=== PATIENT | female | born 1985 | race Caucasian/White ===

== ENCOUNTER 2018-02-27 20:17 | Inpatient (IN) ==
--- NOTE | 2018-02-27 21:22 | XR ---
EXAM DATE: 02/27/2018 8:54 PM EST AGE/SEX: 32 years / Female INDICATIONS: Fever CLINICAL DATA: This is the patient's initial encounter. Patient reports that signs and symptoms have been present for 3 days and indicates a pain score of 0/10. MEDICAL/SURGICAL HISTORY: None. None. COMPARISON: No prior exams available for comparison. FINDINGS: 2 AP views of the chest. The lungs are clear. Cardiomediastinal silhouette within normal limits. No evidence of pleural effusion or pneumothorax. Rounded lucency in the left upper quadrant of the abdomen likely representing distended stomach. CONCLUSION: 1. No acute cardiopulmonary disease identified. 2. Likely distended stomach in the left upper quadrant of the abdomen. Electronically signed by: Darron Boyd MD Board Certified Radiologist 02/27/2018 9:21 PM EST
[2018-02-27 23:39] LABS: Baso % (Auto) 0.1 % (0.0-2.0); Eos # (Auto) 0.1 th/mm3 (0.0-0.4); Eos % (Auto) 0.8 % (0.0-4.0); Hematocrit 36.7 % (35.0-46.0); Hemoglobin 13.1 gm/dL (11.6-15.3); Lymph # (Auto) 1.5 th/mm3 (1.0-4.8); Lymph % (Auto) 8.8 % (9.0-44.0); Mean Corpuscular HGB Conc 35.7 % (32.0-36.0); Mean Corpuscular Hemoglobin 29.5 pg (27.0-34.0); Mean Corpuscular Volume 82.7 fL (80.0-100.0); Mean Platelet Volume 7.1 fL (7.0-11.0); Mono # (Auto) 1.6 th/mm3 (0.0-0.9); Mono % (Auto) 9.2 % (0.0-8.0); Neut # (Auto) 13.7 th/mm3 (1.8-7.7); Neut % (Auto) 81.1 % (16.0-70.0); Platelet Count 306 th/mm3 (150-450); Red Blood Count 4.44 mil/mm3 (4.00-5.30); Red Cell Distribution Width 12.8 % (11.6-17.2); White Blood Count 16.8 th/mm3 (4.0-11.0)
--- NOTE | 2018-02-27 23:42 | ED ---
HPI General Chief complaint: Skin/Abscess/Foreign Body Stated complaint: Abcess Time Seen by Provider: 02/27/18 20:24 History of Present Illness HPI narrative: Patient is a 32-year-old female presents emergency department for evaluation of abscesses "all of her body". Patient states have been there for about 2 weeks. Most pronounced is the dorsum of her left foot, the left side of her neck. All these are sources for her prior IV drug injections. Patient denies any chills any chest pain or any fevers. Patient states that she googled her symptoms and is concerned that bacteria might be in her blood so she panicked and called 911. States symptoms are severe, location context and duration as above. Related Data Home Medications Medication Instructions Recorded Confirmed No Known Home Medications 02/28/18 02/28/18 Allergies Allergy/AdvReac Type Severity Reaction Status Date / Time sulfamethoxazole Allergy Severe VOMITING Verified 02/28/18 04:58 trimethoprim Allergy Severe VOMITING Verified 02/28/18 04:58 Review of Systems ROS: all other systems reviewed are negative [facility] Medical History Medical History delivery delivered (Acute) Patient denies medical problems (Acute) Social History Social History Substance History: Active Abuse Second Hand Smoke Exposure: No Smoking Status: Current every day smoker Tobacco Type: Cigarettes How Often Do You Have a Drink Containing Alcohol: Never Recent Travel in [facility] within the Last 8 Weeks: No Recent Out of Country Travel within the Last 8 Weeks: No Substance Abuse Detail Heroin: Substance Use Status: Active Route Used Substance Abuse: Intravenously Last Used: TODAY Methamphetamine: Substance Use Status: Active Last Used: 3 DAYS AGO Immunization History Tetanus Immunization: Unsure Exam Narrative Exam Narrative: GENERAL: Well-developed well-nourished in no obvious distress. SKIN: Focused skin assessment warm/dry. Significant abscess and cellulitis on the dorsum of foot. Is already draining and the patient states to try to drain at home. Small area of induration and erythema on the left neck probably silver dollar sized. Is also some small abscesses on the volar forearms. No splinter hemorrhages. HEAD: Atraumatic. Normocephalic. EYES: Pupils equal and round. No scleral icterus. No injection or drainage. ENT: No nasal bleeding or discharge. Mucous membranes pink and moist. NECK: Trachea midline. No JVD. CARDIOVASCULAR: Regular rhythm with tachycardia. No murmur appreciated. No murmurs gallops or rubs. RESPIRATORY: No accessory muscle use. Clear to auscultation. Breath sounds equal bilaterally. GASTROINTESTINAL: Abdomen soft, non-tender, nondistended. Hepatic and splenic margins not palpable. MUSCULOSKELETAL: No obvious deformities. No clubbing. No cyanosis. No edema. NEUROLOGICAL: Awake and alert. No obvious cranial nerve deficits. Motor grossly within normal limits. Normal speech. PSYCHIATRIC: Appropriate mood and affect; insight and judgment normal. Procedures Abscess I/D Abscess 1: Site: foot Side (if applicable): left Sedation/analgesia: midazolam Anesthetic used: lidocaine 1% and ethyl chloride topical spray Technique: incised with #11 blade Amount of fluid expressed (mL): 100 Irrigation: No Packing used?: none Course Initial Documented Vital Signs Temperature 98.5 F 02/27/18 20:24 Pulse Rate 98 H 02/27/18 20:24 Respiratory Rate 16 02/27/18 20:24 Blood Pressure 116/75 02/27/18 20:24 Pulse Oximetry 96 02/27/18 20:24 Last Documented Vital Signs Temperature 98.3 F 03/02/18 20:00 Pulse Rate 118 H 03/02/18 20:00 Respiratory Rate 18 03/02/18 20:00 Blood Pressure 123/64 03/02/18 20:00 Pulse Oximetry 97 03/02/18 20:00 Sign Out Sign Out Data: Patient Sign Out occurred on 02/28/18 at 01:05. Patient's care was discussed, and care was transferred from Blair Nettles MD to [place]. Sign Out Comment: Follow up CT soft tissue neck. If surgical abscess call surgeon. If not recommend admission to medicine for rule out osteomyelitis, bacteremia, endocarditis. Last updated by Blair Nettles MD at 02/28/18 00:59 Post-Handoff Eval: 32-year-old female came to the emergency room with history of multiple abscesses. Patient is an IV drug abuser. She was seen by the previous physician. Please refer to his history and physical for further details. Patient was started on IV antibiotic. 1 of the abscesses was I&D by the physician. Signout was to follow-up on the CAT scan of her soft tissue neck. I have admitted the patient to the hospitalist. The CT scan shows an infected branchial cyst with minimal surrounding soft tissue inflammation. Medical Decision Making MDM Narrative Medical decision making narrative: Patient room to the emerge department, multiple abscesses seen on her person, foot was drained and a culture was sent. Patient's white count is elevated, 17,000, she is tachycardic at 100. This is technically sepsis criteria though I think the heart rate is somewhat elevated by the patient's anxiety. She was given vancomycin and Zosyn, liter normal saline, lactic acid negative, blood culture sent. I think the patient needs to be admitted to exclude osteomyelitis, bacteremia, possible endocarditis. Patient still waiting for CT is soft tissue of the neck at the end of my shift and will be discussed with Dr. Rebolledo to follow-up CAT scan and then disposition the patient. Medical Screen Exam Complete: Yes Emergency Medical Condition: Yes Lab Data Result diagrams: 03/01/18 08:31 03/02/18 20:42 POC Results POC Urine Results Negative Lab Results 02/27/18 02/27/18 02/27/18 Range/Units 23:20 23:20 23:20 WBC 16.8 H (4.0-11.0) th/mm3 RBC 4.44 (4.00-5.30) mil/mm3 Hgb 13.1 (11.6-15.3) gm/dL Hct 36.7 (35.0-46.0) % MCV 82.7 (80.0-100.0) fL MCH 29.5 (27.0-34.0) pg MCHC 35.7 (32.0-36.0) % RDW 12.8 (11.6-17.2) % Plt Count 306 (150-450) th/mm3 MPV 7.1 (7.0-11.0) fL Neut % (Auto) 81.1 H (16.0-70.0) % Lymph % (Auto) 8.8 L (9.0-44.0) % Wheeler % (Auto) 9.2 H (0.0-8.0) % Eos % (Auto) 0.8 (0.0-4.0) % Baso % (Auto) 0.1 (0.0-2.0) % Neut # (Auto) 13.7 H (1.8-7.7) th/mm3 Lymph # (Auto) 1.5 (1.0-4.8) th/mm3 Wheeler # (Auto) 1.6 H (0.0-0.9) th/mm3 Eos # (Auto) 0.1 (0.0-0.4) th/mm3 Baso # (Auto) 0.0 (0.0-0.2) th/mm3 WBC Differential . Differential Comment Auto diff final Hematology Comments Sodium 140 (136-145) meq/L Potassium 3.3 L (3.5-5.1) meq/L Chloride 104 (98-107) meq/L Carbon Dioxide 28.8 (21.0-32.0) meq/L Anion Gap 7 (5-15) meq/L BUN 23 H (7-18) mg/dL Creatinine 0.66 (0.50-1.00) mg/dL Estimated GFR Greater than 89 (>89) mL/min Random Glucose 96 (74-106) mg/dL Lactic Acid 0.6 (0.4-2.0) mmol/L Calcium 8.6 (8.5-10.1) mg/dL Magnesium 2.4 (1.5-2.5) mg/dL Total Bilirubin 0.4 (0.2-1.0) mg/dL AST 32 (15-37) U/L ALT 41 (10-53) U/L Alkaline Phosphatase 85 (45-117) U/L Total Protein 8.5 H (6.4-8.2) g/dL Albumin 3.6 (3.4-5.0) g/dL Vancomycin Trough (5.0-10.0) mcg/mL 03/01/18 03/01/18 03/01/18 Range/Units 08:31 08:31 15:46 WBC 11.6 H (4.0-11.0) th/mm3 RBC 4.72 (4.00-5.30) mil/mm3 Hgb 14.3 (11.6-15.3) gm/dL Hct 40.0 (35.0-46.0) % MCV 84.8 (80.0-100.0) fL MCH 30.2 (27.0-34.0) pg MCHC 35.7 (32.0-36.0) % RDW 12.9 (11.6-17.2) % Plt Count 219 (150-450) th/mm3 MPV 7.4 (7.0-11.0) fL Neut % (Auto) 76.5 H (16.0-70.0) % Lymph % (Auto) 12.9 (9.0-44.0) % Wheeler % (Auto) 8.7 H (0.0-8.0) % Eos % (Auto) 1.2 (0.0-4.0) % Baso % (Auto) 0.7 (0.0-2.0) % Neut # (Auto) 8.9 H (1.8-7.7) th/mm3 Lymph # (Auto) 1.5 (1.0-4.8) th/mm3 Wheeler # (Auto) 1.0 H (0.0-0.9) th/mm3 Eos # (Auto) 0.1 (0.0-0.4) th/mm3 Baso # (Auto) 0.1 (0.0-0.2) th/mm3 WBC Differential . Differential Comment Auto diff final Hematology Comments Sodium 134 L (136-145) meq/L Potassium 3.9 (3.5-5.1) meq/L Chloride 107 (98-107) meq/L Carbon Dioxide 19.5 L D (21.0-32.0) meq/L Anion Gap 8 (5-15) meq/L BUN 5 L (7-18) mg/dL Creatinine 0.58 (0.50-1.00) mg/dL Estimated GFR Greater than 89 (>89) mL/min Random Glucose 82 (74-106) mg/dL Lactic Acid (0.4-2.0) mmol/L Calcium 8.4 L (8.5-10.1) mg/dL Magnesium (1.5-2.5) mg/dL Total Bilirubin 0.6 (0.2-1.0) mg/dL AST 25 (15-37) U/L ALT 23 (10-53) U/L Alkaline Phosphatase 89 (45-117) U/L Total Protein 8.0 (6.4-8.2) g/dL Albumin 2.8 L D (3.4-5.0) g/dL Vancomycin Trough 4.1 L (5.0-10.0) mcg/mL 03/02/18 Range/Units 20:42 WBC (4.0-11.0) th/mm3 RBC (4.00-5.30) mil/mm3 Hgb (11.6-15.3) gm/dL Hct (35.0-46.0) % MCV (80.0-100.0) fL MCH (27.0-34.0) pg MCHC (32.0-36.0) % RDW (11.6-17.2) % Plt Count (150-450) th/mm3 MPV (7.0-11.0) fL Neut % (Auto) (16.0-70.0) % Lymph % (Auto) (9.0-44.0) % Wheeler % (Auto) (0.0-8.0) % Eos % (Auto) (0.0-4.0) % Baso % (Auto) (0.0-2.0) % Neut # (Auto) (1.8-7.7) th/mm3 Lymph # (Auto) (1.0-4.8) th/mm3 Wheeler # (Auto) (0.0-0.9) th/mm3 Eos # (Auto) (0.0-0.4) th/mm3 Baso # (Auto) (0.0-0.2) th/mm3 WBC Differential Differential Comment Hematology Comments Sodium (136-145) meq/L Potassium (3.5-5.1) meq/L Chloride (98-107) meq/L Carbon Dioxide (21.0-32.0) meq/L Anion Gap (5-15) meq/L BUN (7-18) mg/dL Creatinine 0.81 (0.50-1.00) mg/dL Estimated GFR 81 L (>89) mL/min Random Glucose (74-106) mg/dL Lactic Acid (0.4-2.0) mmol/L Calcium (8.5-10.1) mg/dL Magnesium (1.5-2.5) mg/dL Total Bilirubin (0.2-1.0) mg/dL AST (15-37) U/L ALT (10-53) U/L Alkaline Phosphatase (45-117) U/L Total Protein (6.4-8.2) g/dL Albumin (3.4-5.0) g/dL Vancomycin Trough (5.0-10.0) mcg/mL Imaging Data Radiologist's impression: Chest X-Ray 02/27/18 20:33 CONCLUSION: 1. No acute cardiopulmonary disease identified. 2. Likely distended stomach in the left upper quadrant of the abdomen. Foot X-Ray 02/28/18 00:00 CONCLUSION: No acute bony findings Soft Tissue Neck CT 02/28/18 00:00 CONCLUSION: 1. 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 Local regional adenopathy noted. A follow-up ultrasound is suggested following resolution of symptoms. Neck Ultrasound 03/01/18 00:00 CONCLUSION: 1. Probable 3.9 cm superficial subcutaneous abscess at the base of the left neck. 2. Patient did not allow for performance of ultrasound-guided needle aspiration without sedation which is medically not necessary. This is a very superficial and obvious lesion for incision and drainage which would likely allow for more definitive evacuation of the collection. Will happily reconsider ultrasound-guided aspiration if patient is agreeable with preprocedural anxiolytics. Foot MRI 03/02/18 00:00 CONCLUSION: 1. Mild subcutaneous edema and no signs of osteomyelitis. Lower Extremity MRI 03/02/18 00:00 CONCLUSION: 1. Unremarkable study. Needle Aspiration US 03/02/18 00:00 CONCLUSION: 1. Uncomplicated ultrasound-guided aspiration of a very complex subcutaneous inferior left neck abscess. Only approximately 1 cc of very thick purulent fluid could be removed. Discharge Plan Discharge Disposition Patient Disposition: ED Admit(ED Internal Use Only) Discharge Order Discharge Orders: AMA Discharge (Routine); Ordered 03/02/18 Ordered By: Haily Manning ED Use Only Admit Order (Routine); Ordered 02/28/18 Ordered By: Stanton Rebolledo Physicians Team ED Provider: Stanton Rebolledo Primary Care Provider: Primary Care Yuliana,Jessi Attending Provider: Damien Ventura Other Providers: Acacia Treviño ; Antonio Pollard ; Tye Longoria Status ED Status: Left Department Discharge Information Discharge Date/Time: 02/28/18 08:32
[2018-02-27] MEDS ORDERED: Vancomycin Inj 1,000 MG in Sodium Chlor 0.9% Inj 250 ML IV.SIG ONE (23:43)
[2018-02-27] MEDS ORDERED: Sod Chloride 0.9% Inj 1,000 ML IV.SIG SCH (23:45)
[2018-02-27] MEDS ORDERED: Piperacil/Tazo 4.5 GM Premix 4.5 GM/100 ML BAG IV.SIG SCH (23:45)
[2018-02-27 23:51] LABS: Alanine Aminotransferase 41 U/L (10-53); Albumin 3.6 g/dL (3.4-5.0); Anion Gap 7 meq/L (5-15); Aspartate Aminotransferase 32 U/L (15-37); Blood Urea Nitrogen 23 mg/dL (7-18); Calcium 8.6 mg/dL (8.5-10.1); Carbon Dioxide 28.8 meq/L (21.0-32.0); Chloride 104 meq/L (98-107); Glomerular Filtration Rate Greater Than 89 mL/min (>89); Glucose,Random 96 mg/dL (74-106); Magnesium 2.4 mg/dL (1.5-2.5); Potassium 3.3 meq/L (3.5-5.1); Sodium 140 meq/L (136-145)
[2018-02-27 23:54] LABS: Alkaline Phosphatase 85 U/L (45-117); Total Protein 8.5 g/dL (6.4-8.2)
[2018-02-28] MEDS ORDERED: Midazolam Inj 5 MG/ML 1 ML Vial IV.PUSH ONE (00:31)
--- NOTE | 2018-02-28 01:37 | CT ---
EXAM DATE: 02/28/2018 1:26 AM EST AGE/SEX: 32 years / Female INDICATIONS: Pain with swelling lower left lateral neck. CLINICAL DATA: This is the patient's initial encounter. Patient reports that signs and symptoms have been present for 1 day and indicates a pain score of 5/10. MEDICAL/SURGICAL HISTORY: . IV Drug User section. RADIATION DOSE: 12.03 CTDI (mGy) COMPARISON: No prior exams available for comparison. TECHNIQUE: Helical acquisition was performed using a multirow detector CT scanner during the adminis tration of 70 ml Omnipaque 350 (iohexol) nonionic water-soluble contrast as a single exam dose. Usi ng automated exposure control and adjustment of the mA and/or kV according to patient size, radiation dose was kept as low as reasonably achievable to obtain optimal diagnostic quality images. DICOM fo rmat image data is available electronically for review and comparison. FINDINGS: Nasopharynx: The nasopharyngeal airway has a normal configuration. No mucosal thickening or mass is seen. Oropharynx: The intrinsic muscles of the tongue are symmetric. The tonsillar pillars are intact. T he prevertebral soft tissues are not thickened. Larynx: The supraglottic, glottic, and infraglottic structures are intact. Parapharyngeal: The parapharyngeal space is intact. Salivary Glands: The parotid and submandibular glands are intact. Lymph Nodes: Adjacent to the posterior margin of the sternocleidomastoid muscle on the left is a cys tic lesion that measures 2.8 x 1.9 x 1.7 cm. It is smoothly marginated and well circumscribed. Mild i nflammatory changes seen within the adjacent fat.. No air associated with this. Mildly enlarged lymph nodes are seen directly superior to the previously described cystic lesion. These measure approximat e 1 cm in greatest dimension.. Thyroid: Homogeneous enhancement without evidence of nodule. Bones: Unremarkable. CONCLUSION: 1. 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 Local regional adenopathy noted. A f ollow-up ultrasound is suggested following resolution of symptoms. Electronically signed by: Abdullahi Ferrer MD Board Certified Radiologist 02/28/2018 1:36 AM EST
[2018-02-28] MEDS ORDERED: Acetaminophen 325 MG Tablet PO PRN (02:30)
[2018-02-28] MEDS ORDERED: Bisacodyl 10 MG Supp RECTAL PRN (02:30)
[2018-02-28] MEDS ORDERED: Vancomycin Consult Pharmacy OTHER PRN (02:30)
[2018-02-28] MEDS ORDERED: Naloxone Inj 0.4 MG/ML Vial IV.PUSH PRN (02:30)
--- NOTE | 2018-02-28 04:33 | P.HPIM ---
History of Present Illness Primary Care Physician: No Primary Care Physician History of Present Illness: This is a 32-year-old female with a PMH of IVDU who presented to the ER with complaints of multiple abscesses for approx 2wks. Notes abscesses to foot, neck and forearms at sites of previous injections. No reported fever or chills. Attempted to drain abscesses at home. On arrival, BP 116/75, HR 98, O2 sat 96% on RA, Afebrile. WBC 16.8. Chemistry essentially unremarkable. Lactic Acid normal. CXR no acute cardiopulmonary findings, possible distended stomach. CT Neck 2.8 cm cystic structure left supraclavicular region with surrounding inflammatory changes possibly infected brachial cleft cyst. S/p I&D of left foot abscess in ER. Vanc/Zosyn given. Diagnosis (1) Abscess: (2) IVDU (intravenous drug user): (3) SIRS (systemic inflammatory response syndrome): Inpatient Certification Inpatient Certification: I certify that the inpatient services were ordered in accordance with Medicare regulations governing the order. This includes certification that hospital inpatient services are reasonable and necessary and in the case of services not specified as inpatient-only under 42 CFR 419.22(n), that they are appropriately provided as inpatient services in accordance to with the 2-midnight benchmark under 43 CFR 412.3(e) Estimated Total Length of Stay (Days): 2 Plans for Post Hospital Care: Not yet determined Review of Systems PAST FAMILY HISTORY: Reviewed. No h/o DM or CAD Review of Systems: all other systems reviewed are negative PMFSH Medical History Medical History delivery delivered (Acute) Patient denies medical problems (Acute) Social History Social History Substance History: Active Abuse Smoking Status: Current every day smoker Tobacco Type: Cigarettes How Often Do You Have a Drink Containing Alcohol: Never Recent Travel in [facility] within the Last 8 Weeks: No Recent Out of Country Travel within the Last 8 Weeks: No Substance Abuse Detail Heroin: Substance Use Status: Active Route Used Substance Abuse: Intravenously Last Used: TODAY Methamphetamine: Substance Use Status: Active Last Used: 3 DAYS AGO Immunization History Tetanus Immunization: Unsure Medications and Allergies Allergies Allergy/AdvReac Type Severity Reaction Status Date / Time sulfamethoxazole Allergy Severe VOMITING Unverified 10/06/16 15:48 trimethoprim Allergy Severe VOMITING Unverified 10/06/16 15:48 Home Medications Medication Instructions Recorded Confirmed Type No Known Home Medications 02/28/18 02/28/18 History Active Medications: Active Medications Acetaminophen (Tylenol) 650 mg PO Q4H PRN PRN Reason: Temp > 100.4 Al Hydroxide/Mg Hydroxide (Milk Of Magnesia Liq) 30 ml PO Q12H PRN PRN Reason: Mild Constipation Bisacodyl (Dulcolax Supp) 10 mg RECTAL DAILY PRN PRN Reason: SEVERE CONSITIPATION Piperacillin/Tazobactam/Dextrose (Zosyn 4.5 Gm Premix) 4.5 gm in 100 mls @ 200 mls/hr IV.SIG ONCE HANNAH Last Infusion: 02/28/18 01:24 Dose: Infused Sodium Chloride (Ns Inj) 1,000 mls @ 100 mls/hr IV.CONT .Q10H HANNAH Piperacillin/Tazobactam/Dextrose (Zosyn 4.5 Gm Premix) 4.5 gm in 100 mls @ 200 mls/hr IV.SIG Q6H HANNAH Lactulose (Lactulose Liq) 30 ml PO DAILY PRN PRN Reason: SEVERE CONSITIPATION Naloxone HCl (Narcan Inj) 0.4 mg IV.PUSH UNSCH PRN PRN Reason: SEE LABEL COMMENTS Ondansetron HCl (Zofran Inj) 4 mg IV.PUSH Q6H PRN PRN Reason: NAUSEA OR VOMITING Oxycodone HCl (Roxicodone) 10 mg PO Q4H PRN PRN Reason: PAIN SCALE 6 TO 10 Oxycodone HCl (Roxicodone) 5 mg PO Q4H PRN PRN Reason: PAIN SCALE 3 TO 5 Pharmacy Profile Note (Vancomycin Consult Pharmacy) 1 each OTHER UNSCH PRN PRN Reason: Pharmacy to dose Senna/Docusate Sodium (Tricia-Colace) 1 tab PO BID HANNA[facility] Sennosides (Senokot) 17.2 mg PO Q12H PRN PRN Reason: Moderate Constipation Sodium Chloride (Ns Flush) 2 ml IV.FLUSH BID HANNA[facility] Sodium Chloride (Ns Flush) 2 ml IV.FLUSH PRN PRN PRN Reason: FLUSH AFTER USING IV ACCESS Physical Exam Vital signs: Last Vital Signs Temp 98.5 F 02/27/18 20:24 Pulse 100 H 02/28/18 00:28 Resp 19 02/28/18 00:28 BP 134/85 02/28/18 00:28 Pulse Ox 100 02/28/18 00:28 Intake & Output 02/25/18 02/26/18 02/27/18 02/28/18 06:59 06:59 06:59 06:59 Intake Total 1350 / 1350 Balance 1350 / 1350 Weight 54.431 kg Narrative: PE: GENERAL: Young white female in no acute distress. SKIN: Focused skin assessment warm and dry. HEENT: PERRLA, EOMI. No scleral icterus or conjunctival pallor. No lid lag or facial droop. +left neck abscess w/ surrounding erythema CARDIOVASCULAR: Regular rate and rhythm. No obvious murmurs to auscultation. No chest tenderness to palpation. RESPIRATORY: No obvious rhonchi or wheezing. Clear to auscultation. Breath sounds equal bilaterally. GASTROINTESTINAL: Abdomen soft, non-tender, nondistended. BS normal. MUSCULOSKELETAL: Extremities without clubbing, cyanosis, or edema. No obvious deformities. Left foot abscess s/p I&D, +erythema/edema. NEUROLOGICAL: Awake, alert and oriented x4. No focal neurologic deficits. Moving both upper and lower extremities spontaneously. PSYCHIATRIC: Appropriate mood and affect. Insight and judgment normal. Results Labs CBC & Chem 7: 02/27/18 23:20 02/27/18 23:20 Imaging Impressions Chest X-Ray 02/27/18 20:33 CONCLUSION: 1. No acute cardiopulmonary disease identified. 2. Likely distended stomach in the left upper quadrant of the abdomen. Soft Tissue Neck CT 02/28/18 00:00 CONCLUSION: 1. 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 Local regional adenopathy noted. A follow-up ultrasound is suggested following resolution of symptoms. Caprini VTE Risk Assessment Caprini VTE Risk Assessment: No/Low Risk (score <= 1) VTE Mechanical Exception: LE injury/wound Caprini Risk Assessment Model: Point Value = 1 Point Value = 2 Point Value = 3 Point Value = 5 Age 41-60 Minor surgery BMI > 25 kg/m2 Swollen legs Varicose veins or History of unexplained or recurrent spontaneous Oral contraceptives or hormone replacement Sepsis (< 1 month) Serious lung disease, including pneumonia (< 1 month) Abnormal pulmonary function Acute myocardial infarction Congestive heart failure (< 1 month) History of inflammatory bowel disease Medical patient at bed rest Age 61-74 Arthroscopic surgery Major open surgery (> 45 min) Laparoscopic surgery (> 45 min) Malignancy Confined to bed (> 72 hours) Immobilizing plaster cast Central venous access Age >= 75 History of VTE Family history of VTE Factor V Leiden Prothrombin [id number] Lupus anticoagulant Anticardiolipin antibodies Elevated serum homocysteine Heparin-induced thrombocytopenia Other congenital or acquired thrombophilia Stroke (< 1 month) Elective arthroplasty Hip, pelvis, or leg fracture Acute spinal cord injury (< 1 month) Prophylaxis Regimen: Total Risk Factor Score Risk Level Prophylaxis Regimen 0-1 Low Early ambulation 2 Moderate Order ONE of the following: *Sequential Compression Device (SCD) *Heparin 5000 units SQ BID 3-4 Higher Order ONE of the following medications: *Heparin 5000 units SQ TID *Enoxaparin/Lovenox 40 mg SQ daily (WT < 150 kg, CrCl > 30 mL/min) *Enoxaparin/Lovenox 30 mg SQ daily (WT < 150 kg, CrCl > 10-29 mL/min) *Enoxaparin/Lovenox 30 mg SQ BID (WT < 150 kg, CrCl > 30 mL/min) AND/OR *Sequential Compression Device (SCD) 5 or more Highest Order ONE of the following medications: *Heparin 5000 units SQ TID (Preferred with Epidurals) *Enoxaparin/Lovenox 40 mg SQ daily (WT < 150 kg, CrCl > 30 mL/min) *Enoxaparin/Lovenox 30 mg SQ daily (WT < 150 kg, CrCl > 10-29 mL/min) *Enoxaparin/Lovenox 30 mg SQ BID (WT < 150 kg, CrCl > 30 mL/min) AND *Sequential Compression Device (SCD) Assessment and Plan (1) Abscess: Code(s): L02.91 - Cutaneous abscess, unspecified Status: Acute (2) IVDU (intravenous drug user): Code(s): F19.90 - Other psychoactive substance use, unspecified, uncomplicated Status: Acute (3) SIRS (systemic inflammatory response syndrome): Code(s): R65.10 - Systemic inflammatory response syndrome (SIRS) of non-infectious origin without acute organ dysfunction Status: Acute Plan A/P: 1. SIRS: HR 98, WBC 16, Source-multiple abscesses, s/p Vanc/Zosyn and blood cultures, continue IV Abx, follow up cultures. 2. Abscesses: secondary to IVDU injection sites, +left neck abscess, CT Neck w / likely infected brachial cleft cyst, recommendation for follow up ultrasound. Continue w/ IV Abx, consult IR for drainage if needed. 3. IVDU: Ongoing w/ Heroin/Meth, Ativan prn 4. DVT Prophylaxis: Mechanical contraindication due to wound 5. Social work for d/c planning as needed. 6. Case discussed w/ ER physician at length, labs/records/imaging reviewed by me.
[2018-02-28] MEDS: Sod Chloride 0.9% Inj 1,000 ML IV.CONT SCH ×3 (06:00→21:19)
[2018-02-28] MEDS: Piperacil/Tazo 4.5 GM Premix 4.5 GM/100 ML BAG IV.SIG SCH ×3 (06:01→17:59)
[2018-02-28] MEDS: Senna/Docusate Sodium 8.6/50 MG Tablet PO SCH ×2 (08:53→21:18)
--- NOTE | 2018-02-28 10:19 | P.PNADD ---
Addendum to Inpatient Note Reason for Addendum: Additional Documentation Additional information: Patient seen at the bedside. Clear lungs bilaterally, unlabored breathing Awake and alert Tender dorsum of left foot with a wound that is status post drained Has a gaping wound in the medial aspect of her left calf that has some dried exudate and is otherwise erythematous Is a tender edematous erythematous fluctuant area just posterior to her left SCM Consulting podiatry and ENT
[2018-02-28] MEDS: Vancomycin Inj 1,000 MG in Sodium Chlor 0.9% Inj 250 ML IV.SIG SCH (13:43)
--- NOTE | 2018-02-28 22:35 | MB ---
cc: Acacia Treviño DPM DATE: 02/28/2018 REASON FOR CONSULTATION: Left foot abscess. HISTORY OF PRESENT ILLNESS: The patient is a 32-year-old female with a past medical history of IVDU, who presented to the ED for abscesses for 2 weeks. She did note that she attempted to drain the abscesses at home. The patient reports that she had a left foot I and D at the ED on 02/28/2018. The patient also denies history of drug use or attempted injecting in her foot. PAST MEDICAL HISTORY: Per HPI. PAST SURGICAL HISTORY: Per HPI. SOCIAL HISTORY: Positive smoking. Denies alcohol, active substance abuse. Last injection per chart was on 02/28/2018. Her last methamphetamine use was 3 days ago. MEDICATIONS: Per chart. PHYSICAL EXAMINATION: Left foot with erythema, edema, redness. Ulcerated tissue at the first met cuneiform base. No fluctuance. There is serous drainage. Positive significant pain on palpation. No streaking at this point. NVS intact. ASSESSMENT: 1. Left foot infection. 2. History of intravenous drug use. PLAN: Left foot x-rays. Left foot MRI with and without contrast. After these images are completed, then we will plan for surgical I and D if needed. The patient will continue with IV antibiotics at this point. Will continue to follow the patient. Acacia Treviño DPM SR/marii , 10:10 PM , 10:16 PM
--- NOTE | 2018-02-28 23:04 | XR ---
EXAM DATE: 02/28/2018 10:24 PM EST AGE/SEX: 32 years / Female INDICATIONS: Left foot pain from abscess. CLINICAL DATA: This is the patient's initial encounter. Patient reports that signs and symptoms have been present for 1 day and indicates a pain score of 7/10. MEDICAL/SURGICAL HISTORY: None. None. COMPARISON: No prior exams available for comparison. FINDINGS: Dorsal soft tissue swelling. No evidence of underlying bony abnormality. No fracture, dislocation or bony destruction identified. CONCLUSION: No acute bony findings Electronically signed by: Rogerio Simons MD Board Certified Radiologist 02/28/2018 11:03 PM EST
[2018-03-01] MEDS: Sod Chloride 0.9% Inj 1,000 ML IV.CONT SCH ×2 (00:03→08:16)
[2018-03-01] MEDS: Piperacil/Tazo 4.5 GM Premix 4.5 GM/100 ML BAG IV.SIG SCH ×5 (00:18→23:22)
[2018-03-01] MEDS: Vancomycin Inj 1,000 MG in Sodium Chlor 0.9% Inj 250 ML IV.SIG SCH ×3 (03:15→16:40)
[2018-03-01] MEDS: Senna/Docusate Sodium 8.6/50 MG Tablet PO SCH ×2 (08:18→21:39)
[2018-03-01 09:28] LABS: Baso # (Auto) 0.1 th/mm3 (0.0-0.2); Baso % (Auto) 0.7 % (0.0-2.0); Eos # (Auto) 0.1 th/mm3 (0.0-0.4); Eos % (Auto) 1.2 % (0.0-4.0); Hemoglobin 14.3 gm/dL (11.6-15.3); Lymph # (Auto) 1.5 th/mm3 (1.0-4.8); Lymph % (Auto) 12.9 % (9.0-44.0); Mean Corpuscular HGB Conc 35.7 % (32.0-36.0); Mean Corpuscular Hemoglobin 30.2 pg (27.0-34.0); Mean Corpuscular Volume 84.8 fL (80.0-100.0); Mean Platelet Volume 7.4 fL (7.0-11.0); Mono % (Auto) 8.7 % (0.0-8.0); Neut # (Auto) 8.9 th/mm3 (1.8-7.7); Neut % (Auto) 76.5 % (16.0-70.0); Platelet Count 219 th/mm3 (150-450); Red Blood Count 4.72 mil/mm3 (4.00-5.30); Red Cell Distribution Width 12.9 % (11.6-17.2); White Blood Count 11.6 th/mm3 (4.0-11.0)
[2018-03-01 09:43] LABS: Albumin 2.8 g/dL (3.4-5.0); Anion Gap 8 meq/L (5-15); Aspartate Aminotransferase 25 U/L (15-37); Blood Urea Nitrogen 5 mg/dL (7-18); Calcium 8.4 mg/dL (8.5-10.1); Carbon Dioxide 19.5 meq/L (21.0-32.0); Chloride 107 meq/L (98-107); Glomerular Filtration Rate Greater Than 89 mL/min (>89); Glucose,Random 82 mg/dL (74-106); Potassium 3.9 meq/L (3.5-5.1); Sodium 134 meq/L (136-145)
[2018-03-01 09:44] LABS: Alanine Aminotransferase 23 U/L (10-53)
[2018-03-01 09:47] LABS: Alkaline Phosphatase 89 U/L (45-117)
--- NOTE | 2018-03-01 11:07 | P.PNIM ---
Subjective Interval history: Patient sitting upright in bed. Complains of pain of the left foot. No other complaints from the patient. Physical Exam Vital signs: Vital Signs 02/28/18 12:00 02/28/18 16:00 02/28/18 19:54 Temperature 97.7 F 98.4 F Pulse Rate 82 81 Respiratory Rate 18 18 Blood Pressure 131/60 122/57 L Pulse Oximetry 100 98 98 02/28/18 20:00 03/01/18 00:00 03/01/18 04:00 Temperature 99.3 F 98.9 F 98.1 F Pulse Rate 98 H 89 86 Respiratory Rate 17 14 14 Blood Pressure 119/64 127/67 130/68 Pulse Oximetry 98 97 98 03/01/18 08:00 03/01/18 10:12 Temperature 97.9 F Pulse Rate 86 Respiratory Rate 18 Blood Pressure 144/83 H Pulse Oximetry 100 100 Intake & Output 02/28/18 03/01/18 03/01/18 18:59 06:59 18:59 Intake Total 1150 / 1150 650 / 650 1100 / 1100 Output Total 1400 / 1400 Balance 1150 / 1150 -750 / -750 1100 / 1100 Weight 59 kg 62.2 kg Intake: IV 1150 / 1150 650 / 650 1100 / 1100 NS Inj 1,000 ML @ 100 mls/hr IV 700 / 700 300 / 300 1000 / 1000 .CONT .Q10H [facility] Rx#:[id number] Zosyn 4.5 GM Premix 4.5 gm In 200 / 200 100 / 100 100 / 100 100 ml @ 200 mls/hr IV.SIG Q6H [facility] Rx#:[id number] Vancomycin Inj 1,000 MG In NS 250 / 250 250 / 250 Inj 250 ML @ 250 mls/hr IV.SIG Q12H [facility] Rx#:[id number] Output: Urine 1400 / 1400 Other: # Voids 2 Weight On Admission 59 kg Narrative: General patient complains of pain in her left foot HEENT extraocular movements are intact, 3 x 3 cm round erythematous tender region on the left side of the patient's supraclavicular region Cardiovascular S1-S2 audible, Respiratory clear to auscultation bilaterally Abdomen soft, nontender, nondistended, normal bowel sounds Extremities left foot in bandage, some yellowish drainage through the bandage. Neuro no focal neurological deficits Results - Labs CBC & Chem 7: 03/01/18 08:31 03/01/18 08:31 Laboratory Results - last 24 hr 03/01/18 03/01/18 08:31 08:31 WBC 11.6 H RBC 4.72 Hgb 14.3 Hct 40.0 MCV 84.8 MCH 30.2 MCHC 35.7 RDW 12.9 Plt Count 219 MPV 7.4 Neut % (Auto) 76.5 H Lymph % (Auto) 12.9 [place] % (Auto) 8.7 H Eos % (Auto) 1.2 Baso % (Auto) 0.7 Neut # (Auto) 8.9 H Lymph # (Auto) 1.5 [place] # (Auto) 1.0 H Eos # (Auto) 0.1 Baso # (Auto) 0.1 WBC Differential . Differential Comment Auto diff final Hematology Comments Sodium 134 L Potassium 3.9 Chloride 107 Carbon Dioxide 19.5 L D Anion Gap 8 BUN 5 L Creatinine 0.58 Estimated GFR Greater than 89 Random Glucose 82 Calcium 8.4 L Total Bilirubin 0.6 AST 25 ALT 23 Alkaline Phosphatase 89 Total Protein 8.0 Albumin 2.8 L D Microbiology 02/28/18 00:50 Abscess - Foot Gram Stain - Final 02/27/18 23:20 Blood - Peripheral Aerobic Blood Culture - Preliminary No growth in 1 day 02/27/18 23:20 Blood - Peripheral Anaerobic Blood Culture - Preliminary No growth in 1 day 02/27/18 23:15 Blood - Peripheral Aerobic Blood Culture - Preliminary No growth in 1 day 02/27/18 23:15 Blood - Peripheral Anaerobic Blood Culture - Preliminary No growth in 1 day - Imaging Impressions Foot X-Ray 02/28/18 00:00 CONCLUSION: No acute bony findings Assessment and Plan - Assessment (1) Abscess Code(s): L02.91 - Cutaneous abscess, unspecified Status: Acute (2) IVDU (intravenous drug user) Code(s): F19.90 - Other psychoactive substance use, unspecified, uncomplicated Status: Acute (3) SIRS (systemic inflammatory response syndrome) Code(s): R65.10 - Systemic inflammatory response syndrome (SIRS) of non- infectious origin without acute organ dysfunction Status: Acute - Plan This patient is a 32-year-old female with a history of IV drug use who presented to the emergency department with multiple abscesses on her extremities. Patient also had abscesses on her neck due to IV drug use. She attempted to drain the abscesses at home by herself. She was found to be tachycardic within elevated WBC count. CT scan of the neck showed 2.8 cm left supraclavicular infected brachial cleft cyst. The left foot also had a significant abscess which was drained in the emergency department. 1. Sepsis secondary to multiple abscesses Patient initially with a WBC count of 16 and tachycardia. WBC count is downtrending. Patient is afebrile overnight. Blood cultures are negative Podiatry was consulted to evaluate the patient, MRI of the left foot has been ordered and is currently pending. We will follow-up with podiatry after the MRI is done for recommendations. Continue vancomycin, continue Zosyn. Patient currently n.p.o., start IV fluid D5 half NS. If no surgical intervention today then will start the patient on p.o. diet. 2. IV drug use 5 minutes was spent counseling the patient on the dangers of IV drug use and polysubstance abuse. The patient says she is trying to quit. No pharmacal therapy for DVT prophylaxis the patient may undergo incision and drainage today. We will follow-up with podiatry.
[2018-03-01] MEDS ORDERED: Pharmacy Ordered Lab Info OTHER ONE (13:45)
[2018-03-01] MEDS: Dextrose 5%/NaCl 0.45% Inj 1,000 ML IV.CONT SCH ×2 (14:11→22:01)
--- NOTE | 2018-03-01 15:45 | US ---
EXAM DATE: 03/01/2018 3:34 PM EST AGE/SEX: 32 years / Female INDICATIONS: Abscess, left neck. CLINICAL DATA: This is the patient's initial encounter. Patient reports that signs and symptoms have been present for 3 days and indicates a pain score of 4/10. MEDICAL/SURGICAL HISTORY: . IVDU. Multiple abscess. SIRS. section. COMPARISON: [facility] [place], CT SOFT TISSUE NECK W CONTRAST, 02/28/2018. . FINDINGS: Ultrasound examination of the left neck demonstrates a 3.9 x 1.6 x 3.2 cm superficial subcutaneous he terogeneous fluid collection. Patient did not allow for performance of ultrasound-guided needle aspir ation without sedation. CONCLUSION: 1. Probable 3.9 cm superficial subcutaneous abscess at the base of the left neck. 2. Patient did not allow for performance of ultrasound-guided needle aspiration without sedation whi ch is medically not necessary. This is a very superficial and obvious lesion for incision and drainag e which would likely allow for more definitive evacuation of the collection. Will happily reconsider ultrasound-guided aspiration if patient is agreeable with preprocedural anxiolytics. Electronically signed by: Hector Sheppard MD Board Certified Radiologist 03/01/2018 3:43 PM EST
--- NOTE | 2018-03-01 18:47 | MB ---
cc: Tye Longoria MD DATE: 03/01/2018 PERSON REQUESTING CONSULTATION: Tess Tsang MD REASON FOR CONSULTATION: Left neck abscess. HISTORY OF PRESENT ILLNESS: The patient is a 32-year-old female with a history of IV drug use, who was admitted to [facility] with multiple areas of IV drug type infections. The patient was diagnosed with multiple left lower extremity wounds associated with infections from previous drug use sites. She has a left area of her neck with a CT proven abscess. Per patient history, she states that the area of her left neck has been present for approximately 2 weeks with increased pain and swelling and erythema. REVIEW OF SYSTEMS: The patient's negative and pertinent positives are as mentioned above in the history of present illness. PAST MEDICAL HISTORY: History of IV drug use. PAST SURGICAL HISTORY: section, previous surgery for IV drug associated infection. HOME MEDICATIONS: None. ALLERGIES: TRIMETHOPRIM AND SULFAMETHOXAZOLE. SOCIAL HISTORY: The patient uses IV drugs. Smokes every day. Denies alcohol use. FAMILY HISTORY: Noncontributory. PHYSICAL EXAMINATION: VITAL SIGNS: Temperature 98.5 degrees, blood pressure 116/75, heart rate 98. GENERAL: A thin, disheveled, chronically ill-appearing female. HEENT: Head is normocephalic, atraumatic. Pupils are round and reactive, accommodating to light. Sclerae are anicteric. Oral cavity is clear. Airway is patent. NECK: Supple. No JVD. Left lateral inferior zone 2 of the neck with some erythema and warmth and tenderness to palpation with some fluctuance on exam. CHEST: Stable breath sounds bilaterally. HEART: Regular rate and rhythm. No murmurs. ABDOMEN: Soft and nontender to palpation. No hernias. EXTREMITIES: Multiple areas of wounds are non-intact skin. NEUROLOGIC: The patient is alert and oriented x3. Mood is within normal limits. Nonfocal peripheral exam. Cranial nerves 2-12 are grossly intact. LABORATORY VALUES: White blood cell count is 16.8, hemoglobin 13.1. IMAGING: A CT scan of the patient's neck soft tissue does show an abscess in the left neck that is 2.1 x 1.9 x 1.7 cm. ASSESSMENT AND PLAN: The patient is a 32-year-old female with a left neck soft tissue abscess associated with IV drug use. PLAN: I discussed with the patient treatment recommendations including antibiotics and drainage. I discussed risks, benefits, and alternatives to surgery for incision and drainage of the patient's neck abscess, including injury to surrounding structures, poor cosmetic outcome and recurrent infections. Also discussed the risks of anesthesia, including general anesthetic with the patient. She is in agreement with the surgery and would like to proceed. We will make the patient n.p.o. after midnight, proceed with surgery tomorrow for incision and drainage of left neck abscess. All questions were answered to her satisfaction. Thank you very much for this consultation and the opportunity to participate in this patient's care. MD QI Darling/isadora/rr , 05:55 PM , 06:05 PM
--- NOTE | 2018-03-01 22:22 | P.PNPOD ---
Subjective Interval history: Left foot ulcer secondary to IVDU Patient seen at bedside this pm with nursing staff. Physical Exam Vital signs: Vital Signs 03/01/18 00:00 03/01/18 04:00 03/01/18 08:00 Temperature 98.9 F 98.1 F 97.9 F Pulse Rate 89 86 86 Respiratory Rate 14 14 18 Blood Pressure 127/67 130/68 144/83 H Pulse Oximetry 97 98 100 03/01/18 10:12 03/01/18 10:53 03/01/18 12:00 Temperature 98.0 F Pulse Rate 96 H Respiratory Rate 18 18 Blood Pressure 128/70 Pulse Oximetry 100 98 03/01/18 13:53 03/01/18 16:00 03/01/18 16:41 Temperature 98.4 F 97.9 F Pulse Rate 74 90 Respiratory Rate 18 18 17 Blood Pressure 112/60 119/69 Pulse Oximetry 98 96 03/01/18 20:00 Temperature 98.2 F Pulse Rate 98 H Respiratory Rate 17 Blood Pressure 144/57 H Pulse Oximetry 100 Intake & Output 03/01/18 03/01/18 03/02/18 06:59 18:59 06:59 Intake Total 650 / 650 1550 / 1550 1000 / 1000 Output Total 1400 / 1400 Balance -750 / -750 1550 / 1550 1000 / 1000 Weight 62.2 kg Intake: IV 650 / 650 1550 / 1550 1000 / 1000 NS Inj 1,000 ML @ 100 mls/hr IV 300 / 300 1000 / 1000 1000 / 1000 .CONT .Q10H [facility] Rx#:[id number] Zosyn 4.5 GM Premix 4.5 gm In 100 / 100 300 / 300 100 ml @ 200 mls/hr IV.SIG Q6H [facility] Rx#:[id number] Vancomycin Inj 1,000 MG In NS 250 / 250 250 / 250 Inj 250 ML @ 250 mls/hr IV.SIG Q12H [facility] Rx#:[id number] Output: Urine 1400 / 1400 Other: # Voids 5 # Bowel Movements 1 Narrative: LLE Left dorsal foot with [id number] wound at the dorsal navicular, no exposed bone or tendon. Decrease edema and erythema + POP Intact NVS Medications and Allergies Active Medications: Active Medications Acetaminophen (Tylenol) 650 mg PO Q4H PRN PRN Reason: Temp > 100.4 Al Hydroxide/Mg Hydroxide (Milk Of Magnesia Liq) 30 ml PO Q12H PRN PRN Reason: Mild Constipation Bisacodyl (Dulcolax Supp) 10 mg RECTAL DAILY PRN PRN Reason: SEVERE CONSITIPATION Piperacillin/Tazobactam/Dextrose (Zosyn 4.5 Gm Premix) 4.5 gm in 100 mls @ 200 mls/hr IV.SIG Q6H [facility] Last Infusion: 03/01/18 18:55 Dose: Infused Vancomycin HCl 1,000 mg/ (Sodium Chloride) 250 mls @ 250 mls/hr IV.SIG Q12H [facility] Last Infusion: 03/01/18 17:56 Dose: Infused Dextrose/Sodium Chloride (D5w/1/2 Ns Inj) 1,000 mls @ 84 mls/hr IV.CONT .[id number] [facility] Last Admin: 03/01/18 22:01 Dose: 84 mls/hr Lactulose (Lactulose Liq) 30 ml PO DAILY PRN PRN Reason: SEVERE CONSITIPATION Lorazepam (Ativan Inj) 1 mg IV.PUSH Q2H PRN PRN Reason: AGITATION/WITHDRAWAL Miscellaneous Information ([facility] Ordered Lab Info) 0 each OTHER ONCE ONE Stop: 03/02/18 13:46 Naloxone HCl (Narcan Inj) 0.4 mg IV.PUSH UNSCH PRN PRN Reason: SEE LABEL COMMENTS Ondansetron HCl (Zofran Inj) 4 mg IV.PUSH Q6H PRN PRN Reason: NAUSEA OR VOMITING Oxycodone HCl (Roxicodone) 10 mg PO Q4H PRN PRN Reason: PAIN SCALE 6 TO 10 Last Admin: 03/01/18 21:39 Dose: 10 mg Oxycodone HCl (Roxicodone) 5 mg PO Q4H PRN PRN Reason: PAIN SCALE 3 TO 5 Pharmacy Profile Note (Vancomycin Consult Pharmacy) 1 each OTHER UNSCH PRN PRN Reason: Pharmacy to dose Senna/Docusate Sodium (Tricia-Colace) 1 tab PO BID [facility] Last Admin: 03/01/18 21:39 Dose: 1 tab Sennosides (Senokot) 17.2 mg PO Q12H PRN PRN Reason: Moderate Constipation Sodium Chloride (Ns Flush) 2 ml IV.FLUSH BID [facility] Last Admin: 03/01/18 21:38 Dose: Not Given Sodium Chloride (Ns Flush) 2 ml IV.FLUSH PRN PRN PRN Reason: FLUSH AFTER USING IV ACCESS Allergies Allergy/AdvReac Type Severity Reaction Status Date / Time sulfamethoxazole Allergy Severe VOMITING Verified 02/28/18 04:58 trimethoprim Allergy Severe VOMITING Verified 02/28/18 04:58 Home Medications Medication Instructions Recorded Confirmed Type No Known Home Medications 02/28/18 02/28/18 History Results - Labs CBC & Chem 7: 03/01/18 08:31 03/01/18 08:31 Laboratory Results - last 24 hr 03/01/18 03/01/18 03/01/18 08:31 08:31 15:46 WBC 11.6 H RBC 4.72 Hgb 14.3 Hct 40.0 MCV 84.8 MCH 30.2 MCHC 35.7 RDW 12.9 Plt Count 219 MPV 7.4 Neut % (Auto) 76.5 H Lymph % (Auto) 12.9 [place] % (Auto) 8.7 H Eos % (Auto) 1.2 Baso % (Auto) 0.7 Neut # (Auto) 8.9 H Lymph # (Auto) 1.5 [place] # (Auto) 1.0 H Eos # (Auto) 0.1 Baso # (Auto) 0.1 WBC Differential . Differential Comment Auto diff final Hematology Comments Sodium 134 L Potassium 3.9 Chloride 107 Carbon Dioxide 19.5 L D Anion Gap 8 BUN 5 L Creatinine 0.58 Estimated GFR Greater than 89 Random Glucose 82 Calcium 8.4 L Total Bilirubin 0.6 AST 25 ALT 23 Alkaline Phosphatase 89 Total Protein 8.0 Albumin 2.8 L D Vancomycin Trough 4.1 L Microbiology 02/28/18 00:50 Abscess - Foot Gram Stain - Final 02/28/18 00:50 Abscess - Foot Wound Culture - Preliminary Heavy growth normal skin jessica at 24 hours 02/27/18 23:20 Blood - Peripheral Aerobic Blood Culture - Preliminary No growth in 2 days 02/27/18 23:20 Blood - Peripheral Anaerobic Blood Culture - Preliminary No growth in 2 days 02/27/18 23:15 Blood - Peripheral Aerobic Blood Culture - Preliminary No growth in 2 days 02/27/18 23:15 Blood - Peripheral Anaerobic Blood Culture - Preliminary No growth in 2 days - Imaging Impressions Foot X-Ray 02/28/18 00:00 CONCLUSION: No acute bony findings Neck Ultrasound 03/01/18 00:00 CONCLUSION: 1. Probable 3.9 cm superficial subcutaneous abscess at the base of the left neck. 2. Patient did not allow for performance of ultrasound-guided needle aspiration without sedation which is medically not necessary. This is a very superficial and obvious lesion for incision and drainage which would likely allow for more definitive evacuation of the collection. Will happily reconsider ultrasound-guided aspiration if patient is agreeable with preprocedural anxiolytics. Assessment and Plan - Assessment (1) Abscess Code(s): L02.91 - Cutaneous abscess, unspecified Status: Acute (2) IVDU (intravenous drug user) Code(s): F19.90 - Other psychoactive substance use, unspecified, uncomplicated Status: Acute - Plan Left foot xrays wnl Patient refusing MRI left foot x 2, i reinforced the importance and discussed the risk as sepsis and bone infection. Continue with dilay dressing change wit betadine. Recommended Medicine f/l left calf with MRI and consult Gen Surgery for recommendation.
[2018-03-02] MEDS: Vancomycin Inj 1,000 MG in Sodium Chlor 0.9% Inj 250 ML IV.SIG SCH ×2 (02:56→15:10)
[2018-03-02] MEDS: Piperacil/Tazo 4.5 GM Premix 4.5 GM/100 ML BAG IV.SIG SCH ×3 (05:04→18:39)
[2018-03-02] MEDS: Senna/Docusate Sodium 8.6/50 MG Tablet PO SCH (08:06)
--- NOTE | 2018-03-02 09:02 | P.PNGS ---
Subjective Interval history: Resting in bed Agrees to have US drain the abscess Physical Exam Vital signs: Vital Signs 03/01/18 10:12 03/01/18 10:53 03/01/18 12:00 Temperature 98.0 F Pulse Rate 96 H Respiratory Rate 18 18 Blood Pressure 128/70 Pulse Oximetry 100 98 03/01/18 13:53 03/01/18 16:00 03/01/18 16:41 Temperature 98.4 F 97.9 F Pulse Rate 74 90 Respiratory Rate 18 18 17 Blood Pressure 112/60 119/69 Pulse Oximetry 98 96 03/01/18 20:00 03/02/18 00:00 03/02/18 04:00 Temperature 98.2 F 97.7 F 98.1 F Pulse Rate 93 H 87 89 Respiratory Rate 17 17 16 Blood Pressure 144/57 H 131/65 120/82 Pulse Oximetry 100 98 98 Intake & Output 03/01/18 03/02/18 03/02/18 18:59 06:59 18:59 Intake Total 1550 / 1550 1690 / 1690 Output Total 300 / 300 Balance 1550 / 1550 1390 / 1390 Weight 61.8 kg Intake: IV 1550 / 1550 1450 / 1450 NS Inj 1,000 ML @ 100 mls/hr IV 1000 / 1000 1000 / 1000 .CONT .Q10H [facility] Rx#:[id number] Zosyn 4.5 GM Premix 4.5 gm In 300 / 300 200 / 200 100 ml @ 200 mls/hr IV.SIG Q6H [facility] Rx#:[id number] Vancomycin Inj 1,000 MG In NS 250 / 250 250 / 250 Inj 250 ML @ 250 mls/hr IV.SIG Q12H [facility] Rx#:[id number] Oral 240 / 240 Output: Urine 300 / 300 Other: # Voids 5 # Bowel Movements 1 0 Narrative: Alert and awake LEFT neck with abscess ---indurated; tender Results - Labs 03/01/18 08:31 03/01/18 08:31 Laboratory Results - last 24 hr 03/01/18 03/01/18 03/01/18 08:31 08:31 15:46 WBC 11.6 H RBC 4.72 Hgb 14.3 Hct 40.0 MCV 84.8 MCH 30.2 MCHC 35.7 RDW 12.9 Plt Count 219 MPV 7.4 Neut % (Auto) 76.5 H Lymph % (Auto) 12.9 [place] % (Auto) 8.7 H Eos % (Auto) 1.2 Baso % (Auto) 0.7 Neut # (Auto) 8.9 H Lymph # (Auto) 1.5 [place] # (Auto) 1.0 H Eos # (Auto) 0.1 Baso # (Auto) 0.1 WBC Differential . Differential Comment Auto diff final Hematology Comments Sodium 134 L Potassium 3.9 Chloride 107 Carbon Dioxide 19.5 L D Anion Gap 8 BUN 5 L Creatinine 0.58 Estimated GFR Greater than 89 Random Glucose 82 Calcium 8.4 L Total Bilirubin 0.6 AST 25 ALT 23 Alkaline Phosphatase 89 Total Protein 8.0 Albumin 2.8 L D Vancomycin Trough 4.1 L - Imaging Imaging: ITS Impressions Chest X-Ray 02/27/18 20:33 CONCLUSION: 1. No acute cardiopulmonary disease identified. 2. Likely distended stomach in the left upper quadrant of the abdomen. Foot X-Ray 02/28/18 00:00 CONCLUSION: No acute bony findings Soft Tissue Neck CT 02/28/18 00:00 CONCLUSION: 1. 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 Local regional adenopathy noted. A follow-up ultrasound is suggested following resolution of symptoms. Neck Ultrasound 03/01/18 00:00 CONCLUSION: 1. Probable 3.9 cm superficial subcutaneous abscess at the base of the left neck. 2. Patient did not allow for performance of ultrasound-guided needle aspiration without sedation which is medically not necessary. This is a very superficial and obvious lesion for incision and drainage which would likely allow for more definitive evacuation of the collection. Will happily reconsider ultrasound-guided aspiration if patient is agreeable with preprocedural anxiolytics. Assessment and Plan - Plan 32 year old female with LEFT neck abscess -I spoke with the patient and US--- patient agrees to have US guided drainage -NPO -I also discussed the plan with Dr. Ventura - Attending Attestation The exam, history, and the medical decision-making described in the above note were completed with the assistance of the mid-level provider. I reviewed and agree with the findings presented. I attest that I had a [id number] encounter with the patient on the same day, and personally performed and documented my assessment and findings in the medical record. IVD associated abscess rec ID d/w patient, ID after NPO 8h
[2018-03-02] MEDS: Dextrose 5%/NaCl 0.45% Inj 1,000 ML IV.CONT SCH (09:50)
--- NOTE | 2018-03-02 10:12 | P.PNIM ---
Subjective Interval history: Patient laying down in bed. Complains of pain in the left foot and left calf. She appears drowsy this morning. She says she does not want to be bothered. Physical Exam Vital signs: Vital Signs 03/01/18 10:12 03/01/18 10:53 03/01/18 12:00 Temperature 98.0 F Pulse Rate 96 H Respiratory Rate 18 18 Blood Pressure 128/70 Pulse Oximetry 100 98 03/01/18 13:53 03/01/18 16:00 03/01/18 16:41 Temperature 98.4 F 97.9 F Pulse Rate 74 90 Respiratory Rate 18 18 17 Blood Pressure 112/60 119/69 Pulse Oximetry 98 96 03/01/18 20:00 03/02/18 00:00 03/02/18 04:00 Temperature 98.2 F 97.7 F 98.1 F Pulse Rate 93 H 87 89 Respiratory Rate 17 17 16 Blood Pressure 144/57 H 131/65 120/82 Pulse Oximetry 100 98 98 03/02/18 08:00 Temperature 97.7 F Pulse Rate 82 Respiratory Rate 16 Blood Pressure 122/57 L Pulse Oximetry 98 Intake & Output 03/01/18 03/02/18 03/02/18 18:59 06:59 18:59 Intake Total 1550 / 1550 1690 / 1690 500 / 500 Output Total 300 / 300 Balance 1550 / 1550 1390 / 1390 500 / 500 Weight 61.8 kg Intake: IV 1550 / 1550 1450 / 1450 500 / 500 D5W/1/2 NS Inj 1,000 ML @ 84 500 / 500 mls/hr IV.CONT .[id number] [facility] Rx# :[id number] NS Inj 1,000 ML @ 100 mls/hr IV 1000 / 1000 1000 / 1000 .CONT .Q10H [facility] Rx#:[id number] Zosyn 4.5 GM Premix 4.5 gm In 300 / 300 200 / 200 100 ml @ 200 mls/hr IV.SIG Q6H [facility] Rx#:[id number] Vancomycin Inj 1,000 MG In NS 250 / 250 250 / 250 Inj 250 ML @ 250 mls/hr IV.SIG Q12H [facility] Rx#:[id number] Oral 240 / 240 Output: Urine 300 / 300 Other: # Voids 5 # Bowel Movements 1 0 Narrative: General patient complains of pain in her left foot HEENT extraocular movements are intact, 3 x 3 cm round erythematous tender region on the left side of the patient's supraclavicular region Cardiovascular S1-S2 audible, Respiratory clear to auscultation bilaterally Abdomen soft, nontender, nondistended, normal bowel sounds Extremities left foot in bandage, some yellowish drainage through the bandage, wound on the medial aspect of the left calf Neuro no focal neurological deficits Results - Labs CBC & Chem 7: 03/01/18 08:31 03/01/18 08:31 Laboratory Results - last 24 hr 03/01/18 15:46 Vancomycin Trough 4.1 L Microbiology 02/28/18 00:50 Abscess - Foot Gram Stain - Final 02/28/18 00:50 Abscess - Foot Wound Culture - Preliminary Heavy growth normal skin jessica at 24 hours 02/27/18 23:20 Blood - Peripheral Aerobic Blood Culture - Preliminary No growth in 2 days 02/27/18 23:20 Blood - Peripheral Anaerobic Blood Culture - Preliminary No growth in 2 days 02/27/18 23:15 Blood - Peripheral Aerobic Blood Culture - Preliminary No growth in 2 days 02/27/18 23:15 Blood - Peripheral Anaerobic Blood Culture - Preliminary No growth in 2 days - Imaging Impressions Neck Ultrasound 03/01/18 00:00 CONCLUSION: 1. Probable 3.9 cm superficial subcutaneous abscess at the base of the left neck. 2. Patient did not allow for performance of ultrasound-guided needle aspiration without sedation which is medically not necessary. This is a very superficial and obvious lesion for incision and drainage which would likely allow for more definitive evacuation of the collection. Will happily reconsider ultrasound-guided aspiration if patient is agreeable with preprocedural anxiolytics. Assessment and Plan - Assessment (1) Abscess Code(s): L02.91 - Cutaneous abscess, unspecified Status: Acute (2) IVDU (intravenous drug user) Code(s): F19.90 - Other psychoactive substance use, unspecified, uncomplicated Status: Acute (3) SIRS (systemic inflammatory response syndrome) Code(s): R65.10 - Systemic inflammatory response syndrome (SIRS) of non- infectious origin without acute organ dysfunction Status: Acute - Plan This patient is a 32-year-old female with a history of IV drug use who presented to the emergency department with multiple abscesses on her extremities. Patient also had abscesses on her neck due to IV drug use. She attempted to drain the abscesses at home by herself. She was found to be tachycardic within elevated WBC count. CT scan of the neck showed 2.8 cm left supraclavicular infected brachial cleft cyst. The left foot also had a significant abscess which was drained in the emergency department. 1. Sepsis secondary to multiple abscesses Patient initially with a WBC count of 16 and tachycardia. WBC count is downtrending. Patient is afebrile overnight. Blood cultures are negative Podiatry was consulted to evaluate the patient, MRI of the left lower extremity and foot and has been ordered and is currently pending. Patient refused MRI yesterday, discussion was held with the patient regarding the importance of getting the MRI done and she has agreed to get it done today. General surgery was also consulted to evaluate the patient for incision and drainage of the neck abscess and left calf and I will follow-up with the recommendations. We will follow-up with podiatry after the MRI is done for recommendations. Continue vancomycin, continue Zosyn. Patient currently n.p.o., start IV fluid D5 half NS. 2. IV drug use Patient advised to stop IV drug use. No pharmacal therapy for DVT prophylaxis the patient may undergo incision and drainage today. We will follow-up with podiatry.
[2018-03-02] MEDS ORDERED: Gadobutrol PF 2 MMOL/2 ML Vial (for RAD) IV.SIG ONE (10:47)
--- NOTE | 2018-03-02 10:55 | MR ---
EXAM DATE: 03/02/2018 10:48 AM EST AGE/SEX: 32 years / Female INDICATIONS: . Wound on anterior surface of left mid foot. CLINICAL DATA: This is the patient's subsequent encounter. Patient reports that signs and symptoms h ave been present for 1 week and indicates a pain score of 0/10. MEDICAL/SURGICAL HISTORY: . IVDA None. COMPARISON: No prior exams available for comparison. TECHNIQUE: Multiplanar, multisequence MRI examination was performed without contrast and after th e intravenous administration of 6 ml Gadavist (gadobutrol) single exam dose. FINDINGS: The marrow signal appears intact without signs of osteomyelitis. There is minimal soft tissue edema t owards the anterior portion of the patient's foot in the subcutaneous tissues. The visualized muscula r and tendinous structures appear grossly intact. CONCLUSION: 1. Mild subcutaneous edema and no signs of osteomyelitis. Electronically signed by: Anna Gore MD Board Certified Radiologist 03/02/2018 10:53 AM EST
--- NOTE | 2018-03-02 11:06 | MR ---
EXAM DATE: 03/02/2018 10:59 AM EST AGE/SEX: 32 years / Female INDICATIONS: Wound on medial mid tibia. CLINICAL DATA: This is the patient's initial encounter. Patient reports that signs and symptoms have been present for 1 week and indicates a pain score of 0/10. MEDICAL/SURGICAL HISTORY: . IVDA None. COMPARISON: No prior exams available for comparison. TECHNIQUE: Multiplanar, multisequence MRI examination was performed without and with 6 ml Gadavist ( gadobutrol) contrast as single exam dose. FINDINGS: The marrow signal appears intact without signs of osteomyelitis. There is no evidence for focal soft tissue abscess. Visualized muscular and tendinous structures are grossly intact. CONCLUSION: 1. Unremarkable study. Electronically signed by: Anna Gore MD Board Certified Radiologist 03/02/2018 11:04 AM EST
[2018-03-02] MEDS ORDERED: Pharmacy Ordered Lab Info OTHER ONE (13:45)
[2018-03-02 15:13] VITALS: RESP 18
--- NOTE | 2018-03-02 15:49 | US ---
EXAM DATE: 03/02/2018 3:18 PM EST AGE/SEX: 32 years / Female INDICATIONS: Left neck abscess. CLINICAL DATA: This is the patient's subsequent encounter. Patient reports that signs and symptoms h ave been present for 3 days and indicates a pain score of 10/10. MEDICAL/SURGICAL HISTORY: . IVDU. Multiple abscess. SIRS. section. COMPARISON: No prior exams available for comparison. FLUID: Total volume of 1 triana sent to lab for ordered studies. . . TECHNIQUE: Ultrasound guidance for needle aspiration. Aspiration. The risks, benefits and alternatives to the procedure were explained and verbal and written consent w as obtained. The site was prepped in sterile fashion. Full sterile technique was used, including ca p, mask, sterile gloves and gown and a large sterile sheet. Hand hygiene and 2% chlorhexidine and/or betadine/alcohol prep was utilized per protocol for cutaneous antisepsis. The skin and subcutaneous tissues were infiltrated with local anesthetic solution. Sterile gel and sterile probe cover were u tilized for ultrasound guidance. With the patient on the ultrasound table, ultrasound imaging was used to select the most appropriate approach for aspiration. An 18-gauge needle was advanced into the collection and multiple aspirations yielded approximately 1 cc of thick purulent fluid. No additional fluid could be removed. FINDINGS: Very complex diffusely now nearly isoechoic fluid collection in the subcutaneous inferior left neck. CONCLUSION: 1. Uncomplicated ultrasound-guided aspiration of a very complex subcutaneous inferior left neck absc ess. Only approximately 1 cc of very thick purulent fluid could be removed. Electronically signed by: Hector Sheppard MD Board Certified Radiologist 03/02/2018 3:47 PM EST
[2018-03-02] MEDS ORDERED: Vancomycin Inj 1,000 MG in Sodium Chlor 0.9% Inj 250 ML IV.SIG SCH (17:00)
[2018-03-02 20:35] VITALS: BP 123/64; PULSE 118; TEMP 98.3; O2SAT 97
[2018-03-04] MEDS ORDERED: Pharmacy Ordered Lab Info OTHER ONE (04:45)
== END 2018-03-02 21:49 | disposition left against medical advice (07) | DRG 872 ==
LOC: NEPD 20:17 → NEDA 02-28 02:26 → N04 02-28 08:37
PROVIDERS: ADMIT Hospitalist; ATTEND Hospitalist
DX: Z88.2 Allergy status to sulfonamides; F15.90 Other stimulant use, unspecified, uncomplicated; L02.612 Cutaneous abscess of left foot; Z88.8 Allergy status to other drugs, medicaments and biological substances; A41.9 Sepsis, unspecified organism; F17.210 Nicotine dependence, cigarettes, uncomplicated; L02.11 Cutaneous abscess of neck; L97.529 Non-pressure chronic ulcer of other part of left foot with unspecified severity; R00.0 Tachycardia, unspecified
CPT/HCPCS: 10060; 10160; 70491; 71010; 71045; 73630; 73720; 76536; 76942; 80053; 80202; 82565; 83605; 83735; 84703; 85025; 87040; 87070; 87205; 90761; 90765; 90767; 90775; 96361; 96365; 96367; 96375; 99285; A9585; J2060; J2250; J2543; J3370; J7030; J7050; Q9967